=== PATIENT | female | born 1990 | race Caucasian/White ===

== ENCOUNTER 2023-11-24 23:30 | Emergency (ER) | payer OTHER ==
[~2023-11-24] VITALS: Ht 157.5 cm; Wt 71.4 kg
[~2023-11-24 23:30] MED LIST: ASPIRIN 81M81 MG/TA2 PO; PRENATAL MVI PO
[2023-11-24 23:37] VITALS: TEMP 98.1
[2023-11-25] MEDS ORDERED: NS 1,000 ML IV ONE (00:15)
[2023-11-25 01:01] LABS: BASO % 0.3 % (0.0-2.0); EOS # 0.5 K/mm3 (0.0-0.7); EOS % 4.3 % (0.0-4.0); GRAN # 8.9 K/mm3 (1.4-6.5); GRAN % 70.4 % (42.2-75.2); HEMATOCRIT 36.8 % (37.0-47.0); LYMPH # 2.2 K/mm3 (1.2-3.4); LYMPH % 17.3 % (20.0-51.0); MEAN CELL VOLUME 87 fl (80.0-100.0); MEAN CORPUSCULAR HEMOGLOBIN 31 pg (27-31); MEAN CORPUSCULAR HGB CONC 35 g/dl (33.0-37.0); MEAN PLATELET VOLUME 9.3 fl (7.4-10.4); MONO # 0.8 K/mm3 (0.1-0.6); MONO % 6.3 % (1.7-9.3); PLATELET COUNT 257 K/mm3 (130-400); RED BLOOD COUNT 4.21 M/mm3 (4.10-5.30); REDCELL DISTRIBUTION WIDTH-CV 12.7 % (11.5-14.5)
[2023-11-25 01:10] LABS: BILIRUBIN,TOTAL 0.2 mg/dL (0.2-1.2); CALCIUM 9.2 mg/dL (8.4-10.2); CREATININE, serum 0.65 mg/dL (0.57-1.11); POTASSIUM 3.6 mEq/L (3.5-4.5); TOTAL PROTEIN 6.5 g/dl (6.2-8.1)
[2023-11-25 01:22] LABS: COLLECTION METHOD CLEAN CATCH
[2023-11-25 01:25] LABS: PH 6.5 (5.0-8.5); URINE APPEARANCE CLEAR (CLEAR/HAZY); URINE BLOOD NEGATIVE (NEGATIVE); URINE COLOR YELLOW (YELLOW); URINE GLUCOSE NEGATIVE (NEGATIVE); URINE KETONE NEGATIVE (NEGATIVE); URINE NITRATE NEGATIVE (NEGATIVE); URINE PROTEIN(semi-quant) NEGATIVE (NEGATIVE); URINE UROBILINOGEN 0.2 E.U/dL (0.2-1.0)
[2023-11-25 01:41] LABS: TRICYCLIC ANTIDEPRESS URINE NEGATIVE (NEGATIVE)
[2023-11-25 01:48] LABS: TSH w REFLEX 3.932 uIU/mL (0.350-4.940)
[2023-11-25] MEDS ORDERED: Iohexol 300 - 100 ML VIAL IV ONE (02:00)
[2023-11-25] MEDS ORDERED: NS 64 ML IV SCH (02:00)
[2023-11-25] MEDS ORDERED: Acetaminophen 325 MG TAB PO PRN (06:00)
[2023-11-25] MEDS ORDERED: Ondansetron 4 MG/2 ML VIAL IV PRN (06:00)
[2023-11-25] MEDS ORDERED: LR 1,000 ML IV SCH (06:15)
[2023-11-25 08:19] LABS: C-REACTIVE PROTEIN 0.35 mg/dL (0.00-0.50)
[2023-11-25 08:27] LABS: TROPONIN-I 0.013 ng/mL (0.00-0.033)
[2023-11-25] MEDS ORDERED: Prenatal Vitamins/Iron/FA TAB PO SCH (09:00)
[2023-11-25 15:13] VITALS: BP 113/77; PULSE 96
== END 2023-11-25 15:13 | disposition home or self-care (01) ==
LOC: COL.ER 23:30
PROVIDERS: Emergency Medicine; Physician Assistant
DX: O99.891 Other specified diseases and conditions complicating pregnancy (principal); R00.0 Tachycardia, unspecified; Z3A.29 29 weeks gestation of pregnancy
CPT/HCPCS: J7030; J7120; Q9967

== ENCOUNTER 2024-02-14 04:44 | Inpatient (IN) | payer OTHER ==
[~2024-02-14] VITALS: Ht 157.5 cm; Wt 80.9 kg
[2024-02-14] VITALS (15 sets, daily range): BP systolic 116–174; BP diastolic 68–96; PULSE 69–100; TEMP 97.9–98.2
[2024-02-14] MEDS ORDERED: LR 1,000 ML IV PRN (05:00)
[2024-02-14] MEDS ORDERED: LR 1,000 ML IV SCH (05:00)
[2024-02-14] MEDS ORDERED: LR & Oxytocin 500 ML IV SCH ×2 (05:00)
[2024-02-14] MEDS ORDERED: Penicillin G Potassium 5,000,000 UNITS in NS 100 ML IV ONE (05:00)
[2024-02-14 06:02] LABS: BASO % 0.3 % (0.0-2.0); EOS # 0.1 K/mm3 (0.0-0.7); EOS % 1.2 % (0.0-4.0); GRAN % 78.1 % (42.2-75.2); HEMOGLOBIN 13.9 g/dl (12.5-16.0); LYMPH # 1.6 K/mm3 (1.2-3.4); LYMPH % 13.7 % (20.0-51.0); MEAN CELL VOLUME 88 fl (80.0-100.0); MEAN CORPUSCULAR HEMOGLOBIN 32 pg (27-31); MEAN CORPUSCULAR HGB CONC 37 g/dl (33.0-37.0); MEAN PLATELET VOLUME 10.1 fl (7.4-10.4); MONO # 0.7 K/mm3 (0.1-0.6); MONO % 5.7 % (1.7-9.3); PLATELET COUNT 234 K/mm3 (130-400); REDCELL DISTRIBUTION WIDTH-CV 12.8 % (11.5-14.5)
--- NOTE | 2024-02-14 06:40 | NUR ---
DR PEREZ AT BEDSIDE. SVE 8-/0, BULGING BAG. NO AROM AT THIS TIME PER PT REQUEST. REMAINS ON UNIT
--- NOTE | 2024-02-14 07:01 | NUR ---
PATIENT UNBLOCKED, DIFFICULTY TRACING EFM DUE TO MATERNAL LABOR COPING POSITIONS. THIS RN REMAINS AT BEDSIDE,
--- NOTE | 2024-02-14 07:26 | NUR ---
0717: DR PEREZ AT BEDSIDE, SVE COMPLETE/BULGING BAG. PT REQUESTS AROM AT THIS TIME. ROOM PREPARED FOR DELIVERY. ALL STAFF NOTIFIED. AROM WITH CLEAR FLUID @ 0717. PT ENCOURAGED TO LISTEN TO HER BODY AND BEGIN PUSHING WITH URGE. 0726: OF VIABLE FEMALE PER AT THIS TIME. PLACED ON MATERNAL ABDOMEN. STRONG CRY NOTED. CARE OF ASSUMED BY ARLENERN. UPON PULSATION, CORD CLAMPED X2 AND CUT BY FOB. SKIN TO SKIN WITH MOTHER. PT TOLERATED LABOR WELL. 0731: OF PLACENTA AT THIS TIME. PITOCIN BOLUS INFUSING PER PROTOCOL. MATERNAL LOCHIA WNL. FUNDUS FIRM AT UMBILICUS WITH MASSAGE. BEGINS REPAIR OF SUPERFICIAL/FIRST DEGREE LACERATION FOLLOWING LOCAL LIDOCAINE FOR ANALGESIA. PT TOLERATING REPAIR WELL. WILL CONTINUE WITH CARES PER PROTOCOL.
[2024-02-14] MEDS ORDERED: Measles/Mumps/Rubella Virus Vaccine Live w Diluent 0.5 ML VIAL SQ SCH (07:45)
[2024-02-14] MEDS ORDERED: Mag/Al Hydrox/Simeth Susp 30 ML CUP PO PRN (07:45)
[2024-02-14] MEDS ORDERED: oxyCODONE 5 MG TAB PO PRN (07:45)
[2024-02-14] MEDS ORDERED: Witch Hazel 50% Pads Bulk TUB TP PRN (07:45)
[2024-02-14] MEDS ORDERED: Tdap Vaccine 0.5 ML SYRINGE IM SCH (07:45)
[2024-02-14] MEDS ORDERED: Magnes Hydrox (MOM) 80 MG/ML 30 ML CUP PO PRN (07:45)
[2024-02-14] MEDS ORDERED: Loratadine 10 MG TAB PO PRN (07:45)
[2024-02-14] MEDS ORDERED: Naloxone 0.4 MG/ML VIAL IV PRN (07:45)
[2024-02-14] MEDS ORDERED: Phenylephrine/Mineral Oil/Petrolatum 57 GM TUBE RC PRN (07:45)
[2024-02-14] MEDS ORDERED: Sennosides/Docusate 8.6-50 MG TAB PO SCH (08:00)
[2024-02-14] MEDS ORDERED: Ibuprofen 600 MG TAB PO SCH ×2 (08:26→08:30)
[2024-02-14] MEDS ORDERED: Acetaminophen 500 MG TAB PO SCH (08:30)
[2024-02-14] MEDS ORDERED: Penicillin G Potassium 2,500,000 UNITS in NS 100 ML IV SCH (08:53)
[2024-02-14] MEDS ORDERED: traZODone 50 MG TAB PO PRN (21:00)
[2024-02-15 02:23] VITALS: BP 113/65; PULSE 84; TEMP 98.1
[2024-02-15 07:16] VITALS: BP 117/74; PULSE 79; TEMP 98.1
[2024-02-15] MEDS ORDERED: IBU600 MG PO (07:40)
--- NOTE | 2024-02-15 09:37 | NUR ---
Initial visit; Parents thanked Conservation Worker for offering congratulations and God's blessings for the of their daughter. Conservation Worker thanked family for choosing [facility].
[2024-02-15 15:40] VITALS: BP 116/73; PULSE 83; TEMP 98.2
[2024-02-15 16:35] VITALS: BP 116/73; PULSE 83; TEMP 98.2
[2024-02-15 20:15] VITALS: BP 136/82; PULSE 91; TEMP 97.7
[2024-02-16 07:51] VITALS: BP 120/78; PULSE 80; TEMP 98.8
--- NOTE | 2024-02-16 11:35 | NUR ---
ALL DC PAPERWORK REVIEWED AND UNDERSTOOD BY PT AND FOB. DENIES FURTHER QUESTIONS OR CONCERNS. AMBULATORY FROM UNIT IN STABLE CONDITION AT THIS TIME. CARSEAT STRAPS ASSESSED AND SAFE BY THIS RN.
== END 2024-02-16 11:35 | disposition home or self-care (01) | DRG 807 ==
LOC: LDR 04:44 → OB 04:44
PROVIDERS: ADMIT Obstetrics & Gynecology
PROC: 10E0XZZ Delivery of Products of Conception, External Approach (ICD-10-PCS; principal; 2024-02-14)
PROC: 0HQ9XZZ Repair Perineum Skin, External Approach (ICD-10-PCS; 2024-02-14)
DX: O48.0 Post-term pregnancy (principal); Z37.0 Single live birth; Z3A.41 41 weeks gestation of pregnancy; O99.824 Streptococcus B carrier state complicating childbirth; O70.0 First degree perineal laceration during delivery
CPT/HCPCS: J2540; J2590; J7120